=== PATIENT | female | born 1950 | race Caucasian/White ===

== ENCOUNTER 2023-05-21 07:37 | Inpatient (IN) | payer OTHER ==
[~2023-05-21] VITALS: Ht 167.6 cm; Wt 76.2 kg
[2023-05-21 07:37] VITALS: BP_SYST 157
--- NOTE | 2023-05-21 07:37 | NUR ---
BROUGHT IN BY [facility], PLACED IN BED #2 AND TRIAGED. ALL STAFF TO BEDSIDE. REPORT GIVEN TO LILIYA
--- NOTE | 2023-05-21 07:40 | NUR ---
Placed in room 02 . Placed on acoustical carpenter, blood pressure machine and pulse oximeter. To gown for exam. Side rails up.
--- NOTE | 2023-05-21 07:40 | NUR ---
Dr Albert evaluating patient at this time
--- NOTE | 2023-05-21 07:41 | NUR ---
Code stroke called at this time
--- NOTE | 2023-05-21 07:44 | NUR ---
PT TO CT
--- NOTE | 2023-05-21 07:50 | NUR ---
Pt returning from CT ,VSS
--- NOTE | 2023-05-21 07:54 | NUR ---
LAB AT THE BEDSIDE FOR BLOOD DRAW
--- NOTE | 2023-05-21 08:00 | NUR ---
EKG AT BEDSIDE
[2023-05-21 08:13] LABS: BASOPHILS # (AUTO) 0.1 K/uL (0.0-0.2); BASOPHILS % (AUTO) 1.1 % (0.0-2.0); EOSINOPHILS # (AUTO) 0.3 K/uL (0.0-0.4); EOSINOPHILS % (AUTO) 5.2 % (0.0-4.0); HEMATOCRIT 25.5 % (36-48); HEMOGLOBIN 8.7 g/dL (12.0-16.0); LYMPHOCYTES # (AUTO) 1.1 K/uL (1.0-5.5); LYMPHOCYTES % (AUTO) 21.7 % (20.5-51.5); MEAN CORPUSCULAR HEMOGLOBIN 31 pg (27-31); MEAN CORPUSCULAR HGB CONC 34 % (32-36); MEAN CORPUSCULAR VOLUME 90 fL (79.0-98.0); MONOCYTES # (AUTO) 0.5 K/uL (0.0-1.0); MONOCYTES % (AUTO) 9.3 % (1.7-9.3); NEUTROPHILS # (AUTO) 3.1 K/uL (1.8-7.7); NEUTROPHILS % (AUTO) 62.7 % (40.0-70.0); PLATELET COUNT (AUTO) 334 K/uL (130-430); RED BLOOD CELL COUNT(AUTO) 2.83 MIL/uL (4.2-6.2); RED CELL DISTRIBUTION WIDTH 12.9 % (9.0-15.0); WHITE BLOOD COUNT (AUTO) 4.9 K/uL (4.8-10.8)
[2023-05-21] MEDS ORDERED: iohexoL 350 mgI/mL, 100 ML INFUS..BTL IV ONE ×2 (08:13→09:46)
--- NOTE | 2023-05-21 08:14 | NUR ---
SPOKE WITH MACIEL AT [facility], HE WILL FAX OVER UPDATED POLST.
--- NOTE | 2023-05-21 08:15 | NUR ---
PER SISTER- PT'S ADVANCED DIRECTIVE IS MESHA CRUZ (ROOMATE) [phone]
[2023-05-21 08:23] LABS: ANION GAP 6 (5-15); CALCIUM 7.9 mg/dL (8.4-11.0); CHLORIDE 104 mmol/L (98-107); CREATININE 0.55 mg/dL (0.55-1.30); GLUCOSE 120 mg/dL (70-99); UREA NITROGEN, BLOOD 11 mg/dL (8-21)
[2023-05-21 08:27] LABS: PROTHROMBIN TIME 10.5 SECS (9.5-12.5)
[2023-05-21] MEDS ORDERED: METH-634 PO (08:27)
[2023-05-21] MEDS ORDERED: CELE200C PO (08:27)
[2023-05-21] MEDS ORDERED: CARB1TAB33 PO (08:27)
[2023-05-21] MEDS ORDERED: PEG15DRO12 EACH EYE (08:27)
[2023-05-21] MEDS ORDERED: ACET-2634 PO (08:27)
[2023-05-21] MEDS ORDERED: NEU300 PO (08:27)
[2023-05-21] MEDS ORDERED: PRO40 PO (08:27)
[2023-05-21] MEDS ORDERED: ONDA-8 TL (08:27)
[2023-05-21] MEDS ORDERED: CALC-939 PO (08:27)
[2023-05-21] MEDS ORDERED: MELA5TAB12 PO (08:27)
[2023-05-21] MEDS ORDERED: DOCU-144 PO (08:27)
[2023-05-21] MEDS ORDERED: LOVI40 SQ (08:27)
[2023-05-21] MEDS ORDERED: BISA-140 PO (08:27)
[2023-05-21] MEDS ORDERED: ASPI-1393 PO (08:27)
[2023-05-21] MEDS ORDERED: MIRA50TA PO (08:27)
--- NOTE | 2023-05-21 08:27 | NUR ---
Medication reconciliation completed with information provided by FERMIN MONTANO. Any prior medication reconciliation on file was reviewed and corrected.
--- NOTE | 2023-05-21 08:28 | NUR ---
Patient transported to radiology via GURNEY, accompanied by SVETA LOVELL AND CT STAFF.
[2023-05-21] MEDS ORDERED: NALOXONE HCL 2 MG/2 ML SYR (NARCAN) IVP ONE (08:30)
[2023-05-21 08:31] LABS: ALANINE AMINOTRANSFERASE 11 U/L (12-78); ALBUMIN 2.3 g/dL (3.4-4.8); ASPARTATE AMINOTRANSFERASE 22 U/L (10-37); TOTAL BILIRUBIN 0.6 mg/dL (0.0-1.0)
[2023-05-21 08:32] LABS: GFR AFRICAN AMERICAN 141 mL/min (>90)
[2023-05-21] MEDS ORDERED: KCL 40 mEq in 100 mL (PREMIX) 100 ML IV ONE (09:00)
[2023-05-21] MEDS ORDERED: NACL 0.9% 1,000 ML IV ONE (09:00)
[2023-05-21] MEDS ORDERED: KCL 20 mEq in NS 1000 mL 1,000 ML IV ONE (09:15)
--- NOTE | 2023-05-21 10:50 | NUR ---
Admit bed requested Patient will be admitted to care of . Admitted to TELE unit. Diagnosis ACUTE ENCEPHALOPATHY Inpatient (Yes or No) Y Observation (Yes or No) N Orientation concerns or request close to nursing station (Yes or No) N Covid Status NA On vent or bipap N Isolation requirements N Needs a sitter N From Home (Yes or if No enter name of facility) [facility] Requires Dialysis (Yes or No) N Med Rec Completed (Yes of No) Y
[2023-05-21] MEDS: D5NS 1,000 ML IV SCH (11:00)
[2023-05-21] MEDS ORDERED: hydrALAZINE HCL 20 MG/ML VIAL IVP ONE (11:15)
--- NOTE | 2023-05-21 14:44 | NUR ---
CONSULTATION PAGED/CALLED Reason for Consultation: Parkinson's Disease Person Who was Notified: Dr Drummond Consulting Physician: Dr Drummond Bone Density Technician Specialty: Neuro Ordering Physician: Dr Pimentel
[2023-05-21] MEDS ORDERED: methocarbamoL 500 MG TABLET PO PRN (14:45)
[2023-05-21 15:21] VITALS: BP_SYST 127
--- NOTE | 2023-05-21 15:21 | NUR ---
ADMISSION NOTES PATIENT ADMITTING FROM ER. PATIENT IS A/O X 4, MAURITANIAN SPEAKING. SISTER IN LAW AT BEDSIDE. BOTH HANDS ARE SHAKING. MODERATE PAIN ON RIGHT HIP REPORTED 4/10. PAIN MEDICATION IS GIVEN. PATIENT STATUS POST HIP IMMOBILIZER. RIGHT HIP HAS 23 JUANIS POST HIP PROCEDURE. PICTURE IS TAKEN. REDNESS ON SACRAL AREA, PICTURE IS TAKEN. PATIENT IS ORIENTED TO . PURWICK IS PLACED. SAFETY PRECAUTION IN PLACE. PATIENT AND FAMILY IS EDUCATED TO USE CALL LIGHT. BED IS LOCKED IN LOWEST POSITION. WILL CONTINUE WITH PLAN OF CARE.
[2023-05-21] MEDS: CARBIDOPA/LEVODOPA 25/100 MG TABLET PO SCH ×2 (15:49→21:58)
[2023-05-21] MEDS: ACETAMINOPHEN 500 MG TABLET PO PRN (15:55)
[2023-05-21 16:48] VITALS: BP_SYST 127
--- NOTE | 2023-05-21 19:00 | NUR ---
CLOSING NOTES PATIENT IS RESTING. BREATHING UNLABORED ON RA. NO PAIN, NO DISTRESS, NO SOB NOTED. FAMILY AT BED SIDE. CALL LIGHT WITHIN REACH. BED LOCKED IN LOWEST POSITION. WILL ENDORSE TO SOUVENIR AND NOVELTY MAKER NURSE.
[2023-05-21 19:30] VITALS: BP_SYST 99
--- NOTE | 2023-05-21 19:30 | NUR ---
PM ASSESSMENT; - Patient is awake, alert, oriented X 4. Pt denies any chest pain,pain,sob,or any acute distress. Patient oriented to hospital room, call light, toileting, pain management and safety-teach back done. IV site patent, no s/s any infiltration noted. IVF infusing well. Abd pillow applied btw thighs with a brace on rt hip drsg cdi.All safety measures in place. Purewick in place drains yellow urine output. Fall precaution in place, side rails x3, Call light within reach. Cont to monitor pt.
[2023-05-21] MEDS ORDERED: MELATONIN 5 MG TABLET PO SCH (21:00)
[2023-05-21] MEDS: ASPIRIN 81 MG TABLET(ECOTRIN) PO SCH (21:58)
[2023-05-21] MEDS: GABAPENTIN 300 MG CAPSULE PO SCH (21:58)
[2023-05-21] MEDS: PEG 400/HYPROMELLOSE/GLYCERIN 15 ML DROPS EACH EYE SCH (21:59)
[2023-05-21] MEDS: DOCUSATE SODIUM 100 MG CAPSULE PO SCH (21:59)
[2023-05-21] MEDS: MELATONIN 3 MG TABLET PO PRN (22:00)
[2023-05-22] VITALS: BP_SYST 140
--- NOTE | 2023-05-22 00:23 | NUR ---
ROUNDS; -Pt is resting in bed comfortably. NO s/s any pain,sob,or any acute distress noted. IVF infusing well, no s/s any infiltration noted. Abd pillow in btw thighs. All safety measures in place. Call light w/in reach. Cont to monitor pt.
--- NOTE | 2023-05-22 04:12 | NUR ---
ROUNDS; -Pt is resting in bed comfortably. Pt had multiple of tremor noted. NO s/s any pain,sob,or any acute distress noted. IVF infusing well, no s/s any infiltration noted. Abd pillow in btw thighs. All safety measures in place. Call light w/in reach. Cont to monitor pt.
[2023-05-22] MEDS: D5NS 1,000 ML IV SCH ×2 (05:12→12:45)
[2023-05-22 05:14] LABS: BASOPHILS # (AUTO) 0.1 K/uL (0.0-0.2); BASOPHILS % (AUTO) 1.1 % (0.0-2.0); EOSINOPHILS # (AUTO) 0.4 K/uL (0.0-0.4); EOSINOPHILS % (AUTO) 7.2 % (0.0-4.0); HEMATOCRIT 25.3 % (36-48); HEMOGLOBIN 8.3 g/dL (12.0-16.0); LYMPHOCYTES # (AUTO) 1.4 K/uL (1.0-5.5); LYMPHOCYTES % (AUTO) 26.1 % (20.5-51.5); MEAN CORPUSCULAR HEMOGLOBIN 30 pg (27-31); MEAN CORPUSCULAR HGB CONC 33 % (32-36); MEAN CORPUSCULAR VOLUME 91 fL (79.0-98.0); MONOCYTES # (AUTO) 0.6 K/uL (0.0-1.0); MONOCYTES % (AUTO) 11.7 % (1.7-9.3); NEUTROPHILS # (AUTO) 2.9 K/uL (1.8-7.7); NEUTROPHILS % (AUTO) 53.9 % (40.0-70.0); PLATELET COUNT (AUTO) 345 K/uL (130-430); RED BLOOD CELL COUNT(AUTO) 2.79 MIL/uL (4.2-6.2); RED CELL DISTRIBUTION WIDTH 13.2 % (9.0-15.0); WHITE BLOOD COUNT (AUTO) 5.3 K/uL (4.8-10.8)
[2023-05-22 05:38] LABS: CALCIUM 7.6 mg/dL (8.4-11.0); CREATININE 0.52 mg/dL (0.55-1.30)
[2023-05-22 05:49] LABS: TOTAL IRON BIND. CAPACITY 130 ug/dL (250-450)
--- NOTE | 2023-05-22 06:05 | NUR ---
NOTES; COLLECTED MRSA SPECIMEN AND SENT TO LAB PER PROTOCOL.
--- NOTE | 2023-05-22 06:41 | NUR ---
CLOSING NOTES; -Pt is resting in bed. NO s/s any pain,sob,or any acute distress noted. IV site patent, no s/s any infiltration noted. IVF infusing well. Abd pillow applied btw thighs with a brace on rt hip drsg cdi.All safety measures in place. Purewick in place drains yellow urine output. Fall precaution in place, side rails x3, Call light within reach. Pt's condition stable. Will endorse to next nurse to continuity of care.
--- NOTE | 2023-05-22 07:03 | NUR ---
NOTES; INFORMED DR. LEE AT [facility] THAT VANDANA IN LAW OF PT WANTED MD TO CALL HER, HE ACKNOWLEDGES.
[2023-05-22 08:03] VITALS: BP_SYST 137
[2023-05-22] MEDS: ENOXAPARIN SODIUM 40 MG/0.4 ML SYRINGE SQ SCH (08:43)
[2023-05-22] MEDS: CELECOXIB 200 MG CAPSULE PO SCH (08:43)
[2023-05-22] MEDS: CALCIUM CARBONATE/VITAMIN D3 1 TAB TABLET PO SCH (08:43)
[2023-05-22] MEDS: CARBIDOPA/LEVODOPA 25/100 MG TABLET PO SCH ×5 (08:43→21:55)
[2023-05-22] MEDS: DOCUSATE SODIUM 100 MG CAPSULE PO SCH ×2 (08:43→21:55)
[2023-05-22] MEDS: ASPIRIN 81 MG TABLET(ECOTRIN) PO SCH ×2 (08:43→21:55)
[2023-05-22] MEDS: BISACODYL 5 MG TABLET.DR (DULCOLAX) PO SCH (08:43)
[2023-05-22] MEDS: PANTOPRAZOLE SODIUM 40 MG TAB PO SCH (08:43)
[2023-05-22] MEDS: PEG 400/HYPROMELLOSE/GLYCERIN 15 ML DROPS EACH EYE SCH ×2 (08:43→21:54)
[2023-05-22] MEDS: Mirabegron (Myrbetriq) 50 MG TAB PO SCH (08:44)
[2023-05-22] MEDS ORDERED: Mirabegron (Myrbetriq) 50 MG TAB PO SCH (09:00)
[2023-05-22] MEDS ORDERED: POTASSIUM CHLORIDE 20 MEQ TAB.PRT.SR PO ONE (09:15)
[2023-05-22 12:00] VITALS: BP_SYST 135
[2023-05-22 16:00] VITALS: BP_SYST 130
[2023-05-22] MEDS: SOD FERRIC GLUC COMPLEX/SUC 125 MG in NS 100 ML IV SCH (16:47)
--- NOTE | 2023-05-22 19:00 | NUR ---
patient has been stable the whole shift. no c/o pain. started on ferlecit with no untoward rxn. endorsed to night abigail yi
--- NOTE | 2023-05-22 20:00 | NUR ---
Recieved pt from AM nurse. Pt is resting in bed. NO s/s any pain,sob,or any acute distress noted. IV site patent, no s/s any infiltration noted. IVF infusing well L ac. Abd pillow applied btw thighs with a brace on rt hip drsg cdi.All safety measures in place. Purewick in place drains yellow urine output. Fall precaution in place, side rails x3, Call light within reach. Pt's condition stable. spoke to pt about requesting DNR status, she is alert to understand her advance directive. no medications given at the time of request for advance directive. will continue to monitor.
[2023-05-22 20:37] VITALS: BP_SYST 132
[2023-05-22 20:42] VITALS: BP_SYST 132
[2023-05-22] MEDS: MEGESTROL ACETATE 400 MG/10 ML UDC PO SCH (21:54)
[2023-05-22] MEDS: GABAPENTIN 300 MG CAPSULE PO SCH (21:55)
[2023-05-22] MEDS: MELATONIN 3 MG TABLET PO PRN (21:55)
[2023-05-23 01:46] VITALS: BP_SYST 154
--- NOTE | 2023-05-23 02:40 | NUR ---
0230: RECEIVED PT FROM PM SHIFT NURSE. PT SLEEPING RESPIRATION EVEN AND UNLABORED. ABD PILLOW IN PLACE. BED IN LOW POSITION, BED ALARM ON, CALL LIGHT WITHIN REACH. Addendum: 05/23/23 at 0632 by Toshia Silvestre, SVETA BANGURA RT LEG BRACE IN PLACE. RLE WITH WARMTH, SENSATION, PALPABLE PULSES, AND BRISK CAP REFILL.
--- NOTE | 2023-05-23 08:00 | NUR ---
OPENING NOTE; PT RESTING IN BED, BREATHING NON-LABORED AND EVEN ON ROOM AIR. C/O PAIN TO RIGHT HIP, WILL GIVE PAIN MEDICATION. IVF RUNNING ORDERED. NO IV INFILTRATION OR INFECTION NOTED. SAFETY PRECAUTION IN PLACE . BED IS LOCKED AND A LOW POSITION. ENCOURAGED PT TO USE CALL LIGHT FOR ASSISTANCE. WILL CONT TO MONITOR FOR ANY CHANGES
[2023-05-23 08:06] LABS: FOLATE (FOLIC ACID) 3.7 ng/mL (>3.0)
[2023-05-23] MEDS: MEGESTROL ACETATE 400 MG/10 ML UDC PO SCH ×2 (08:51→20:19)
[2023-05-23] MEDS: CARBIDOPA/LEVODOPA 25/100 MG TABLET PO SCH ×4 (08:52→20:19)
[2023-05-23] MEDS: PEG 400/HYPROMELLOSE/GLYCERIN 15 ML DROPS EACH EYE SCH ×2 (08:52→21:04)
[2023-05-23] MEDS: CELECOXIB 200 MG CAPSULE PO SCH (08:52)
[2023-05-23] MEDS: DOCUSATE SODIUM 100 MG CAPSULE PO SCH ×2 (08:53→20:19)
[2023-05-23] MEDS: PANTOPRAZOLE SODIUM 40 MG TAB PO SCH (08:53)
[2023-05-23] MEDS: ASPIRIN 81 MG TABLET(ECOTRIN) PO SCH ×2 (08:53→20:19)
[2023-05-23] MEDS: BISACODYL 5 MG TABLET.DR (DULCOLAX) PO SCH (08:53)
[2023-05-23] MEDS: CALCIUM CARBONATE/VITAMIN D3 1 TAB TABLET PO SCH (08:53)
[2023-05-23] MEDS: ENOXAPARIN SODIUM 40 MG/0.4 ML SYRINGE SQ SCH (08:54)
[2023-05-23] MEDS: Mirabegron (Myrbetriq) 50 MG TAB PO SCH (08:54)
[2023-05-23 10:03] LABS: CALCIUM 7.7 mg/dL (8.4-11.0); CREATININE 0.51 mg/dL (0.55-1.30)
[2023-05-23 10:08] LABS: BASOPHILS % (AUTO) 0.8 % (0.0-2.0); EOSINOPHILS # (AUTO) 0.3 K/uL (0.0-0.4); HEMATOCRIT 24.7 % (36-48); HEMOGLOBIN 8.3 g/dL (12.0-16.0); LYMPHOCYTES # (AUTO) 1.1 K/uL (1.0-5.5); LYMPHOCYTES % (AUTO) 20.1 % (20.5-51.5); MEAN CORPUSCULAR HEMOGLOBIN 30 pg (27-31); MEAN CORPUSCULAR HGB CONC 34 % (32-36); MEAN CORPUSCULAR VOLUME 90 fL (79.0-98.0); MONOCYTES # (AUTO) 0.5 K/uL (0.0-1.0); MONOCYTES % (AUTO) 9.4 % (1.7-9.3); NEUTROPHILS # (AUTO) 3.5 K/uL (1.8-7.7); NEUTROPHILS % (AUTO) 63.7 % (40.0-70.0); PLATELET COUNT (AUTO) 404 K/uL (130-430); RED BLOOD CELL COUNT(AUTO) 2.73 MIL/uL (4.2-6.2); RED CELL DISTRIBUTION WIDTH 13.1 % (9.0-15.0); WHITE BLOOD COUNT (AUTO) 5.5 K/uL (4.8-10.8)
--- NOTE | 2023-05-23 11:27 | NUR ---
NOTES; PT RESTING IN BED, NO S/S ACUTE DISTRESS OR DISCOMFORT. ADDUCTOR PILLOW AND BILATERAL HEEL BOOSTERS ON. CALL LIGHT WITHIN REACH.
[2023-05-23 11:38] VITALS: BP_SYST 100
--- NOTE | 2023-05-23 14:30 | NUR ---
NOTES; PT RESTING IN BED, NO S/S ACUTE DISTRESS OR DISCOMFORT NOTED. SAFETY PRECAUTION IN PLACE. CALL LIGHT WITHIN REACH. WILL CONT TO MONITOR FOR ANY CHANGES
[2023-05-23] MEDS: SOD FERRIC GLUC COMPLEX/SUC 125 MG in NS 100 ML IV SCH (16:25)
[2023-05-23] MEDS: D5NS 1,000 ML IV SCH (16:26)
[2023-05-23 16:47] VITALS: BP_SYST 106
--- NOTE | 2023-05-23 17:07 | NUR ---
Dietitian Recommendations * Regular diet, Ensure BID, Jalil BID (supplements yield 880 kcal/day, 45 gm protein/day) * Prune juice daily for constipation * Encourage good PO intakes LP, MS, RD Please refer to Nutrition Assessment for details. Addendum: 05/23/23 at [address] Amended: Links added.
--- NOTE | 2023-05-23 17:09 | NUR ---
NOTES; DR. ZAVALETA SAID REGARDING DNR, CHECK WITH THE FAMILY SINCE PT CAME IN FOR ALOC.
--- NOTE | 2023-05-23 17:09 | NUR ---
ROUNDS; AT BEDSIDE, ASSESSING PT
[2023-05-23] MEDS: ACETAMINOPHEN 500 MG TABLET PO PRN (17:31)
[2023-05-23] MEDS ORDERED: POTASSIUM CHLORIDE 20 MEQ/PKT PACKET PO ONE (17:45)
--- NOTE | 2023-05-23 18:20 | NUR ---
NOTES; CALLED AND SPOKE WITH BASSAM(SISTER IN LAW) TO CONFIRM PT'S DNR DECISION. BASSAM KNOWS THAT PT WISHES DNR. WILL LET DOCTOR KNOW TO GET THE SIGNATURE FOR CODE STATUS FORM
--- NOTE | 2023-05-23 18:44 | NUR ---
CLOSING NOTE; PT RESTING IN BED, BREATHING NON-LABORED AND EVEN ON ROOM AIR. DENIES ANY DISCOMFORT OR PAIN AT THIS TIME. IVF RUNNING ORDERED. NO IV INFILTRATION OR INFECTION NOTED. PUREWICKS ON. ABDUCTOR PILLOW AND BILATERAL HEEL BOOTS ON. SAFETY PRECAUTION IN PLACE . BED IS LOCKED AND A LOW POSITION. ENCOURAGED PT TO USE CALL LIGHT FOR ASSISTANCE. WILL ENDORSE CARE TO LABORER CONCRETE PAVING NURSE.
[2023-05-23 20:00] VITALS: BP_SYST 112
[2023-05-23] MEDS: GABAPENTIN 300 MG CAPSULE PO SCH (20:19)
--- NOTE | 2023-05-23 21:00 | NUR ---
perineal care given , repositioned , kept with abductor pillow and hip brace, right hip dressing dry/intact , needs attended.
--- NOTE | 2023-05-24 00:47 | NUR ---
PATIENT RESTING: Patient resting quietly. No acute distress noted. Vital signs within normal range.
[2023-05-24 01:19] VITALS: BP_SYST 129
--- NOTE | 2023-05-24 06:07 | NUR ---
Morning care given tolerates well turning side to side with abductor pillow .
[2023-05-24 06:26] LABS: BASOPHILS # (AUTO) 0.1 K/uL (0.0-0.2); EOSINOPHILS # (AUTO) 0.3 K/uL (0.0-0.4); EOSINOPHILS % (AUTO) 4.7 % (0.0-4.0); HEMATOCRIT 26.3 % (36-48); HEMOGLOBIN 8.8 g/dL (12.0-16.0); LYMPHOCYTES # (AUTO) 1.7 K/uL (1.0-5.5); LYMPHOCYTES % (AUTO) 27.1 % (20.5-51.5); MEAN CORPUSCULAR HEMOGLOBIN 31 pg (27-31); MEAN CORPUSCULAR HGB CONC 34 % (32-36); MEAN CORPUSCULAR VOLUME 91 fL (79.0-98.0); MONOCYTES # (AUTO) 0.5 K/uL (0.0-1.0); MONOCYTES % (AUTO) 8.6 % (1.7-9.3); NEUTROPHILS # (AUTO) 3.6 K/uL (1.8-7.7); NEUTROPHILS % (AUTO) 58.6 % (40.0-70.0); PLATELET COUNT (AUTO) 405 K/uL (130-430); RED BLOOD CELL COUNT(AUTO) 2.89 MIL/uL (4.2-6.2); RED CELL DISTRIBUTION WIDTH 13.2 % (9.0-15.0); WHITE BLOOD COUNT (AUTO) 6.2 K/uL (4.8-10.8)
[2023-05-24 06:50] LABS: CREATININE 0.56 mg/dL (0.55-1.30)
[2023-05-24 08:00] VITALS: BP_SYST 144
--- NOTE | 2023-05-24 08:00 | NUR ---
OPENING NOTE; PT RESTING IN BED, BREATHING NON-LABORED AND EVEN ON ROOM AIR. ABDUCTOR PILLOW ON WITH R HIP BRACE. IVF RUNNING ORDERED. NO IV INFILTRATION OR INFECTION NOTED. SAFETY PRECAUTION IN PLACE . BED IS LOCKED AND A LOW POSITION. ENCOURAGED PT TO USE CALL LIGHT FOR ASSISTANCE. WILL CONT TO MONITOR FOR ANY CHANGES
[2023-05-24] MEDS: MEGESTROL ACETATE 400 MG/10 ML UDC PO SCH ×2 (08:04→20:46)
[2023-05-24] MEDS: PEG 400/HYPROMELLOSE/GLYCERIN 15 ML DROPS EACH EYE SCH ×2 (08:04→20:46)
[2023-05-24] MEDS: CALCIUM CARBONATE/VITAMIN D3 1 TAB TABLET PO SCH (08:04)
[2023-05-24] MEDS: ENOXAPARIN SODIUM 40 MG/0.4 ML SYRINGE SQ SCH (08:05)
[2023-05-24] MEDS: CELECOXIB 200 MG CAPSULE PO SCH (08:05)
[2023-05-24] MEDS: DOCUSATE SODIUM 100 MG CAPSULE PO SCH ×2 (08:05→20:46)
[2023-05-24] MEDS: ASPIRIN 81 MG TABLET(ECOTRIN) PO SCH ×2 (08:06→20:46)
[2023-05-24] MEDS: PANTOPRAZOLE SODIUM 40 MG TAB PO SCH (08:06)
[2023-05-24] MEDS: Mirabegron (Myrbetriq) 50 MG TAB PO SCH (08:06)
[2023-05-24] MEDS: CARBIDOPA/LEVODOPA 25/100 MG TABLET PO SCH ×4 (08:06→20:56)
[2023-05-24] MEDS: BISACODYL 5 MG TABLET.DR (DULCOLAX) PO SCH (08:06)
--- NOTE | 2023-05-24 11:20 | NUR ---
NOTES; PT RESTING IN BED, DENIES ANY PAIN OR DISCOMFORT. IVF RUNNING ORDERED. WILL CONT TO MONITOR FOR ANY CHANGES
[2023-05-24 11:36] VITALS: BP_SYST 107
--- NOTE | 2023-05-24 13:55 | NUR ---
NOTES; PROVIDED VON CARE, PT TOLERATED WELL. ABDUCTOR PILLOW AND B HEEL PROTECTORS ON
--- NOTE | 2023-05-24 14:30 | NUR ---
NOTES; CHANGED LINEN, GOWN, AND BLANKETS DUE TO THEY ARE SOILED
--- NOTE | 2023-05-24 15:00 | NUR ---
CM: s/w patient at bedside: said she came from [place], last month to visit her brother and sister in law in [place] . She fell at her brother's house and hospitalized with recent ORIF. She was at [facility] for 3 weeks and [facility] Upon discharge, she requested going back to [facility] with a roasterman placement. She is unable to stay at her brother 's home, no extra space for her. She can't return to [place] either due to her hip fx and no one to help if going back to [place]. She shares a home with 5 other women, all are independent. She requests to apply for [facility] if that will help with the placement. Please speak with Akilah(Rut) sister in law who will help manage her medical treatment needs. LM for INFANT TODDLER LEAD TEACHER to f/u.
[2023-05-24 16:00] VITALS: BP_SYST 117
[2023-05-24] MEDS: SOD FERRIC GLUC COMPLEX/SUC 125 MG in NS 100 ML IV SCH (16:28)
--- NOTE | 2023-05-24 16:43 | NUR ---
ROUNDS; AT BEDSIDE, ASSESSING PT.
--- NOTE | 2023-05-24 17:22 | NUR ---
NEW PIV TO LEFT HAND 24G INITIATED BY USING ASEPTIC TECHNIQUE. FLUSHED WITH 10CC NS, GOOD BLOOD RETURN NOTED. PT TOLERATED WELL. NO PAIN AT THE SITE. COVERED WITH TRANSPARENT DRESSING. PREVIOUS PIV ACCIDENTLY PULLED OUT. NO ACTIVE BLEEDING NOTED.
[2023-05-24] MEDS: D5NS 1,000 ML IV SCH (18:53)
--- NOTE | 2023-05-24 18:54 | NUR ---
CLOSING NOTE; PT RESTING IN BED, BREATHING NON-LABORED AND EVEN ON ROOM AIR. ABDUCTOR PILLOW ON WITH R HIP BRACE. IVF RUNNING ORDERED. NO IV INFILTRATION OR INFECTION NOTED. SAFETY PRECAUTION IN PLACE . BED IS LOCKED AND A LOW POSITION. ENCOURAGED PT TO USE CALL LIGHT FOR ASSISTANCE. WILL ENDORSE CARE TO MOP HANDLE ASSEMBLER NURSE
[2023-05-24] MEDS: ACETAMINOPHEN 500 MG TABLET PO PRN (19:05)
--- NOTE | 2023-05-24 20:15 | NUR ---
OPENING NOTE PT LYING IN BED AND EYES OPEN. BREATHING EVEN AND NONLABORED ON RA. LUNG SOUNDS CLEAR. INCISION ON RIGHT HIP. WEARING BRACE AND APPLIED HIP ABDUCTION PILLOW. NOTICED TREMOR IN BOTH HANDS. A/OX4. COOPERATIVE. SAFETY CHECKS IN PLACE. CALL LIGHT IN REACH. CONTINUE TO MONITOR
[2023-05-24] MEDS: GABAPENTIN 300 MG CAPSULE PO SCH (20:46)
[2023-05-24] MEDS: MELATONIN 3 MG TABLET PO PRN (21:00)
[2023-05-24] MEDS ORDERED: MELATONIN 3 MG TABLET ONE (21:02)
--- NOTE | 2023-05-24 22:40 | NUR ---
NEW IV PT LEFT HAND IV INFILTRATED. OBTAINED NEW IV ON LEFT FOREARM 24G. CONFIRMED PATENCY AND BLOOD RETURNED
--- NOTE | 2023-05-24 23:30 | NUR ---
SKIN CARE PROVIDED NEW LINEN AND SKIN CARE. GIVEN SOFT MASSAGE ON PT'S BACK. PT SATISFIED. CONTINUE TO MONITOR
[2023-05-25 00:37] VITALS: BP_SYST 155
[2023-05-25 01:09] VITALS: BP_SYST 106
[2023-05-25] MEDS: D5NS 1,000 ML IV SCH (03:29)
--- NOTE | 2023-05-25 03:42 | NUR ---
ROUNDING NOTE PT LYING IN BED AND SNORING. BREATHING EVEN AND NONLABORED ON RA. NO S/S OF ACUTE DISTRESS. SAFETY CHECKS IN PLACE. CALL LIGHT IN REACH. CONTINUE TO MONITOR
--- NOTE | 2023-05-25 06:57 | NUR ---
CLOSING NOTE PT LYING IN BED AND EYES CLOSED. BREATHING EVEN AND NONLABORED ON RA. NO PAIN REPORTED. IV RUNNING @75mL. NO ACUTE DISTRESS. SAFETY CHECKS IN PLACE. CALL LIGHT IN REACH. ENDORSED DAY SHIFT NURSE
--- NOTE | 2023-05-25 07:30 | NUR ---
Initial note: Patient resting in bed. Call light in reach. Bed in the lowest position and side rails x2 up. Will follow up with his pain medication due to abdominal pain. Will continue patient care.
--- NOTE | 2023-05-25 07:30 | NUR ---
Initial note: Patient resting in bed. Call light in reach. Bed in the lowest position and side rails x2 up. room close to the nurses station. Will continue patient care.
[2023-05-25 08:18] VITALS: BP_SYST 120
[2023-05-25] MEDS: PEG 400/HYPROMELLOSE/GLYCERIN 15 ML DROPS EACH EYE SCH (08:57)
[2023-05-25] MEDS: MEGESTROL ACETATE 400 MG/10 ML UDC PO SCH (08:58)
[2023-05-25] MEDS: DOCUSATE SODIUM 100 MG CAPSULE PO SCH (08:59)
[2023-05-25] MEDS: PANTOPRAZOLE SODIUM 40 MG TAB PO SCH (09:00)
[2023-05-25] MEDS: Mirabegron (Myrbetriq) 50 MG TAB PO SCH (09:00)
[2023-05-25] MEDS: ENOXAPARIN SODIUM 40 MG/0.4 ML SYRINGE SQ SCH (09:00)
[2023-05-25] MEDS: ASPIRIN 81 MG TABLET(ECOTRIN) PO SCH (09:00)
[2023-05-25] MEDS: CELECOXIB 200 MG CAPSULE PO SCH (09:01)
[2023-05-25] MEDS: CARBIDOPA/LEVODOPA 25/100 MG TABLET PO SCH ×2 (09:02→13:10)
[2023-05-25] MEDS: BISACODYL 5 MG TABLET.DR (DULCOLAX) PO SCH (09:02)
[2023-05-25] MEDS: CALCIUM CARBONATE/VITAMIN D3 1 TAB TABLET PO SCH (09:03)
--- NOTE | 2023-05-25 09:35 | NUR ---
FAXED PACKET OVER TO [facility] TO GET A BED NUMBER FOR MRS FIGUEROA.
--- NOTE | 2023-05-25 11:30 | NUR ---
Rounds : Patient resting in bed. no c/o pain, not in distress. Call light in reach. Bed in the lowest position and side rails x2 up. room close to the nurses station. Will continue patient care.
[2023-05-25 12:00] VITALS: BP_SYST 115
--- NOTE | 2023-05-25 12:58 | NUR ---
MRS FIGUEROA WILL BE GOING BACK TO [facility] TO ROOM 124 MEDIC 1 WILL BE PICKING UP AT 3PM
--- NOTE | 2023-05-25 14:00 | NUR ---
Notes- Called patient's sister in law Akilah and made aware of transfer to [facility] at 3pm.
[2023-05-25 14:03] VITALS: BP_SYST 115
--- NOTE | 2023-05-25 14:49 | NUR ---
Report given to Delmy at [facility].
--- NOTE | 2023-05-25 15:36 | NUR ---
Discharge to [facility], alert and oriented. denies any pain or discomfort. No distress. Has cellphone and line o scribe operator, sent with ambulance. IVL removed.
== END 2023-05-25 15:26 | DRG 56 ==
LOC: EDBD 07:37 → SED 07:37 → STU 10:48 → SMU 05-24 23:26
PROVIDERS: ADMIT Family Medicine; ATTEND Family Medicine
PROC: 4A10X4Z Monitoring of Central Nervous Electrical Activity, External Approach (ICD-10-PCS; principal; 2023-05-23)
DX: G20 Parkinson's disease (principal); E43 Unspecified severe protein-calorie malnutrition; G93.41 Metabolic encephalopathy; M81.0 Age-related osteoporosis without current pathological fracture; D64.9 Anemia, unspecified; I10 Essential (primary) hypertension; D50.9 Iron deficiency anemia, unspecified; Z96.652 Presence of left artificial knee joint; Z96.641 Presence of right artificial hip joint; K21.9 Gastro-esophageal reflux disease without esophagitis; Z88.0 Allergy status to penicillin; Z88.2 Allergy status to sulfonamides; Z79.899 Other long term (current) drug therapy; Z68.27 Body mass index [BMI] 27.0-27.9, adult
CPT/HCPCS: 36415; 36600; 70450-TC; 70496; 70498; 71045; 71275; 76376; 80048; 80053; 82465; 82607; 82728; 82746; 82803; 83540; 83550; 83735; 83880; 84484; 85025; 85610-TC; 85730-TC; 86886; 86900; 86901; 87081; 93005; 94760; 95816; 96365; 96375; 99291; G0378; J0360; J1650; J2916; J3480; J7030; J7042; Q9967